=== PATIENT | female | born 1990 | race Two or more races ===

== ENCOUNTER 2020-07-18 05:15 | Inpatient (IN) | payer OTHER ==
[~2020-07-18] VITALS: Ht 162.6 cm; Wt 62.6 kg
[2020-07-18] MEDS ORDERED: PRENATAL CAPLE1 EAC1 PO (10:01)
== END 2020-07-20 13:11 | disposition home or self-care (01) | DRG 768 ==
LOC: OBS/DEL 05:15 → LDR 09:07 → OB/GYN 09:07
PROVIDERS: ADMIT Obstetrics & Gynecology; ATTEND Obstetrics & Gynecology
PROC: 10E0XZZ Delivery of Products of Conception, External Approach (ICD-10-PCS; principal; 2020-07-18)
PROC: 0DQR0ZZ Repair Anal Sphincter, Open Approach (ICD-10-PCS; 2020-07-18)
PROC: 4A1HXFZ Monitoring of Products of Conception, Cardiac Rhythm, External Approach (ICD-10-PCS; 2020-07-18)
PROC: 3E033VJ Introduction of Other Hormone into Peripheral Vein, Percutaneous Approach (ICD-10-PCS; 2020-07-18)
DX: O70.21 Third degree perineal laceration during delivery, IIIa (principal); Z37.0 Single live birth; Z3A.39 39 weeks gestation of pregnancy; Z20.828 Contact with and (suspected) exposure to other viral communicable diseases